=== PATIENT | male | born 1980 | race Caucasian/White ===

== ENCOUNTER 2023-08-24 21:41 | Emergency (ER) | payer SELFPAY ==
[2023-08-24 22:13] VITALS: PULSE 100; RESP 16
== END 2023-08-24 22:23 | disposition left against medical advice (07) ==
LOC: ER 21:41
DX: T14.8XXA Other injury of unspecified body region, initial encounter (principal); Z53.21 Procedure and treatment not carried out due to patient leaving prior to being seen by health care provider; X58.XXXD Exposure to other specified factors, subsequent encounter